=== PATIENT | female | born 1945 | race Hispanic/Latino ===

== ENCOUNTER 2017-04-21 13:56 | Inpatient (IN) | payer MEDICARE ==
[~2017-04-21] VITALS: Ht 154.9 cm; Wt 35.6 kg
[2017-04-21] MEDS ORDERED: SODIUM CHLORIDE FLUSH 10 ML SYR INJ PRN (14:45)
[2017-04-21 20:03] LABS: BASOPHILS % 0.3 % (0.0-1.0); BILIRUBIN,URINE 1+ (NEGATIVE); COLOR,URINE YELLOW (YELLOW); EOSINOPHILS % 0.4 % (0.0-6.0); HEMATOCRIT 44.4 % (34.2-44.1); HEMOGLOBIN 15.3 g/dL (12.0-16.0); KETONES,URINE 2+ (NEGATIVE); LEUKOCYTE ESTERASE ,URINE 1+ (NEGATIVE); LYMPHOCYTES # (AUTO) 0.8 (1.0-3.2); LYMPHOCYTES % 9.8 % (18.0-39.1); MEAN CORPUSCULAR HEMOGLOBIN 30.7 pg (28-32); MEAN CORPUSCULAR HGB CONC 34.5 g/dL (31-35); MEAN CORPUSCULAR VOLUME 89.2 fL (81-99); MONOCYTES # (AUTO) 0.7 (0.2-0.8); MONOCYTES % 8.5 % (4.4-11.3); NEUTROPHILS # (AUTO) 6.4 (2.1-6.9); NEUTROPHILS % 80.6 % (38.7-80.0); NITRITE,URINE NEGATIVE (NEGATIVE); PLATELET COUNT 276 x10e3/uL (140-360); RED BLOOD COUNT 4.98 x10e6/uL (3.6-5.1); RED CELL DISTRIBUTION WIDTH 15.9 % (11.7-14.4); URINE UROBILINOGEN 0.2 mg/dL (0.2 - 1)
[2017-04-21 20:05] LABS: CLARITY,URINE SL CLOUDY (CLEAR); PROTEIN,URINE DIPSTICK 1+ (NEGATIVE)
[2017-04-21 20:14] LABS: BACTERIA,URINE FEW /HPF; EPITHELIAL CELLS,URINE FEW /LPF; MUCUS,URINE FEW (RARE); RBC,URINE 0-5 /HPF (0-5)
[2017-04-21 20:17] LABS: ALANINE AMINOTRANSFERASE 7 IU/L (0-55); ALBUMIN 3.8 g/dL (3.5-5.0); ALBUMIN/GLOBULIN RATIO 0.9 (0.8-2.0); ALKALINE PHOSPHATASE 57 IU/L (40-150); AMYLASE 107 U/L (25-125); ANION GAP 20.5 mmol/L (8-16); BLOOD UREA NITROGEN 28 mg/dL (7-26); BUN/CREATININE RATIO 32 (6-25); CALCIUM 9.7 mg/dL (8.4-10.2); CARBON DIOXIDE 21 mmol/L (22-29); CHLORIDE 94 mmol/L (98-107); CREATINE KINASE 47 IU/L (29-168); CREATININE, SERUM 0.87 mg/dL (0.57-1.11); EST GLOMERULAR FILTRATION RATE > 60 ML/MIN (60-); GLUCOSE 97 mg/dL (74-118); LIPASE 63 U/L (8-78); POTASSIUM 4.5 mmol/L (3.5-5.1); SODIUM 131 mmol/L (136-145)
[2017-04-21 20:23] LABS: TROPONIN I 0.021 ng/mL (0-0.300)
[2017-04-21] MEDS ORDERED: SODIUM CHLORIDE 0.9% 50ML 50 ML ONE (21:36)
[2017-04-21] MEDS ORDERED: IOPAMIDOL 370 MG/ML 200 ML INFUS..BTL INJ ONE (21:36)
--- NOTE | 2017-04-21 21:42 | Diagnostic Imaging Report ---
EXAM: CT ABDOMEN AND PELVIS with IV CONTRAST DATE: 04/21/2017 2:42 PM Time stamp on Exam: 2036 hours INDICATION: Decreased appetite, pancreatitis COMPARISON: None TECHNIQUE: The abdomen and pelvis were scanned using a multidetector helical scanner. Coronal and sagittal reformations were obtained. Routine protocol performed. IV Contrast: 100 cc Isovue-370 Oral Contrast: Water CTDIvol has been reviewed. It is below the limits set by the Radiation Protocol Committee (RPC). FINDINGS: LOWER THORAX: Nonspecific 9 mm nodule left lung base. There is additional thickening and groundglass opacities suggesting chronic changes. LIVER: No masses BILIARY: The gallbladder is unremarkable. No ductal dilation. SPLEEN: No masses PANCREAS: No masses ADRENALS: No nodules KIDNEYS: Symmetric perfusion. No enhancing masses. No hydronephrosis. GI TRACT: High-grade small bowel obstruction. Transition point not identified. Right lower quadrant ostomy. VESSELS: Atherosclerotic changes without aneurysm. PERITONEUM/RETROPERITONEUM: No free air or fluid LYMPH NODES: No lymphadenopathy REPRODUCTIVE ORGANS: There is a 7 cm x 4 cm enhancing mass in the pelvis that could be the uterus. There is a 4 cm right adnexal cyst. BLADDER: Decompressed SOFT TISSUES: Unremarkable BONES: No suspicious bone lesions. IMPRESSION: High-grade small bowel obstruction without transition point identified. Enhancing mass in the pelvis may be an abnormal uterus and there is a nonspecific 4cm right adnexal cyst. Recommend comparison to patient's prior imaging not currently available. Nonspecific 9 mm nodule in the left lung base. Signed by: Dr. Kemi De Anda M.D. on 04/21/2017 9:38 PM
[2017-04-21] MEDS: SODIUM CHLORIDE 0.9% 250ML IRRIG IR SCH (22:15)
[2017-04-21] MEDS ORDERED: ONDANSETRON HCL INJ 2 MG/ML VIAL IV PRN (22:15)
[2017-04-21] MEDS ORDERED: LEVOFLOXACIN 500MG/D5W 100ML 100 ML IV SCH (22:15)
[2017-04-21] MEDS ORDERED: BENZOCAINE/TETRACAINE/BUTAMBEN AERO SPRAY 56 GM CAN TOP ONE (22:30)
[2017-04-21] MEDS: SODIUM CHLORIDE 0.9% 1000ML 1,000 ML IV SCH (22:43)
[2017-04-22] VITALS (10 sets, daily range): BP systolic 91–115; BP diastolic 39–53
[2017-04-22] MEDS ORDERED: MORPHINE SULFATE 2 MG/ML SYR IV PRN (02:00)
[2017-04-22] MEDS: SODIUM CHLORIDE 0.9% 250ML IRRIG IR SCH ×6 (02:45→22:15)
[2017-04-22] MEDS ORDERED: MARINOL5 MG PO (05:06)
[2017-04-22] MEDS ORDERED: METOCLOPRAMIDE10 MG PO (05:06)
[2017-04-22] MEDS ORDERED: BENEFIBER1 EAC1 PO (05:06)
[2017-04-22] MEDS ORDERED: FAMOTIDINE20 MG PO (05:06)
[2017-04-22] MEDS ORDERED: DOCUSATE SODIU100 MG PO (05:06)
[2017-04-22] MEDS ORDERED: ATORVASTATIN CA10 MG PO (05:06)
[2017-04-22] MEDS: SODIUM CHLORIDE 0.9% 1000ML 1,000 ML IV SCH ×2 (09:17→17:53)
[2017-04-22] MEDS ORDERED: LEVOFLOXACIN 500MG/D5W 100ML 100 ML IV SCH (11:30)
--- NOTE | 2017-04-22 12:02 | History and Physical ---
CHIEF COMPLAINTS 1. Abdominal pain. 2. Nausea. 3. Burning urination. HPI: This is a 71-year-old female with no other significant past medical history except CA of colon status post surgery. She was in her usual state of health until a few days ago when she started developing some abdominal pain and nausea and abdominal distention. No fever. Had some burning urination. No chest pain. No shortness of breath. No cough. No leg pain. No leg swelling. ALLERGIES: ALLERGIC TO CODEINE. PAST MEDICAL HISTORY: History of CA of colon. PAST SURGICAL HISTORY: History of right hemicolectomy. SOCIAL HISTORY: Patient lives with her family. HABITS: Smoking cigarettes 1 pack per day. Denies alcohol use. Denies illicit drug use. FAMILY HISTORY: Noncontributory. MEDICATION LIST: None. REVIEW OF SYSTEMS GENERAL: Denies fatigue and weakness. HEENT: No diplopia. No blurring of vision. CARDIOPULMONARY: No chest pain. No shortness of breath. No cough. ALIMENTARY SYSTEM: Has some nausea and vomiting. Abdominal distention. Had some abdominal pain. GENITOURINARY: Has some dysuria. No hematuria. MUSCULOSKELETAL: No joint pain. CENTRAL NERVOUS SYSTEM: No focal weakness. PHYSICAL EXAMINATION GENERAL: This is a 71-year-old female who is alert and oriented times 3. VITAL SIGNS: Temperature 95.9, pulse 97, respiratory rate 18, blood pressure 115/51. HEENT: Within normal limits. Head is atraumatic and normocephalic. Pupils are bilaterally equal and reactive to light. The extraocular movements are intact. NECK: Supple. No JVD. No carotid bruit. NG tube in place. LUNGS: Air entry fair. No added sound. HEART: S1 and S2. Regular rate and rhythm. No S3, S4 or murmur. ABDOMEN: Soft. Mild tenderness generalized. No guarding. No rigidity. EXTREMITIES: No peripheral edema. Peripheral pulses are +1. ORNAMENTER HAND: Grossly nonfocal. LABS: Urine: White count 11-20. Sodium 131, potassium 4.5, BUN and creatinine 28 and 0.87. LFTs normal. White count 7.96, hemoglobin and hematocrit 15.3 and 44.4, platelets 276. ASSESSMENT 1. Small-bowel obstruction. 2. Urinary tract infection. 3. Debility. PLAN 1. N.P.O. 2. NG tube feeding. 3. IV fluids with normal saline at 125 mL per hour. 4. Levaquin 500 IV q.24 h. 5. Labs in the morning. 6. Surgical consultation with Dr. Hanson. 7. Once the patient is stable, we will need a CT of the chest and ultrasound of pelvis. Tests were discussed with the patient. Told of her condition and prognosis. Job#: [id number]
--- NOTE | 2017-04-22 16:34 | Diagnostic Imaging Report ---
EXAM: Abdomen 2 Views INDICATION: \S\small bowel obstruction \[id number] \S\1530 COMPARISON: CT abdomen and pelvis from 04/21/2017 FINDINGS: Mild of stool in the colon. Decreased caliber of the loops of bowel. NG/OG tube overlying the gastric body. No renal calculi. No abnormal soft tissue masses. Mild degenerative changes in the lumbar spine and pelvis. Residual contrast in the urinary bladder. IMPRESSION: Improved bowel obstruction. Signed by: Dr. Sheree Baker M.D. on 04/22/2017 4:30 PM
--- NOTE | 2017-04-22 20:46 | Consultation ---
DATE OF CONSULTATION: April 22, 2017 REQUESTING PHYSICIAN: Dr. Stuart Pitts and Dr. Best Pitts. HISTORY OF PRESENT ILLNESS: Patient is a 71-year-old female who has a history of surgery for colon cancer in November of last year, who presents with complaints of abdominal pain with nausea and poor intake. She has an ileostomy, and there has been no output from the ileostomy. She was evaluated with CT scans of abdomen and pelvis in the emergency room which revealed small-bowel obstruction. Patient is a very poor historian and does not give much history. PAST MEDICAL HISTORY: Significant for Raynaud's syndrome and previous surgery for colon cancer. MEDICATIONS AT HOME: Include Benefiber, Colace, atorvastatin, Pepcid, Reglan, Marinol. ALLERGIES: SHE HAS NO KNOWN ALLERGIES. FAMILY HISTORY: Noncontributory. SOCIAL HISTORY: Patient smokes cigarettes, 1/2 pack per day. Does not drink alcohol. REVIEW OF SYSTEMS: Very limited, except as stated above. The patient is a very poor historian. PHYSICAL EXAMINATION VITALS: Normal. She is not tachycardic. GENERAL: The patient is awake and alert, but does not really answer questions much. HEENT: Reveals no scleral icterus. There is a nasogastric tube in place. NECK: No masses. LUNGS: Equal breath sounds are clear bilaterally. CARDIAC: Regular rate and rhythm. ABDOMEN: Has an ileostomy in the right lower quadrant. It is soft. There is no significant distention. There is no tenderness. EXTREMITIES: No edema. LABORATORY TESTS: The white blood cell count is normal with a slight left shift of differential. Hemoglobin and hematocrit are normal. Chemistries also were essentially normal. CT of abdomen and pelvis reveals findings of small-bowel obstruction. ASSESSMENT: A 71-year-old female with findings suggestive of small-bowel obstruction. There are no signs of peritonitis or ischemic bowel at this time. Recommend continuing the patient n.p.o. on IV fluids with nasogastric tube. Plan to repeat the abdominal x-ray today and repeat labs tomorrow. If her symptoms do not resolve, then she may require surgery. This was explained to the patient. Thank you asking see me to see Ms. Pierce. Job#: [id number]
[2017-04-22] MEDS: LEVOFLOXACIN 500MG/D5W 100ML 100 ML IV SCH (23:57)
[2017-04-23] VITALS (7 sets, daily range): BP systolic 80–98; BP diastolic 42–52
[2017-04-23] MEDS: SODIUM CHLORIDE 0.9% 250ML IRRIG IR SCH ×2 (02:29→06:15)
[2017-04-23] MEDS: SODIUM CHLORIDE 0.9% 1000ML 1,000 ML IV SCH ×4 (02:29→21:02)
[2017-04-23 06:38] LABS: HEMATOCRIT 31.6 % (34.2-44.1); HEMOGLOBIN 10.6 g/dL (12.0-16.0); MEAN CORPUSCULAR HEMOGLOBIN 31.3 pg (28-32); MEAN CORPUSCULAR HGB CONC 33.5 g/dL (31-35); MEAN CORPUSCULAR VOLUME 93.2 fL (81-99); PLATELET COUNT 201 x10e3/uL (140-360); RED BLOOD COUNT 3.39 x10e6/uL (3.6-5.1); RED CELL DISTRIBUTION WIDTH 16.3 % (11.7-14.4)
[2017-04-23 07:16] LABS: ANION GAP 15.1 mmol/L (8-16); BLOOD UREA NITROGEN 14 mg/dL (7-26); BUN/CREATININE RATIO 22 (6-25); CALCIUM 7.9 mg/dL (8.4-10.2); CARBON DIOXIDE 19 mmol/L (22-29); CHLORIDE 101 mmol/L (98-107); CREATININE, SERUM 0.65 mg/dL (0.57-1.11); EST GLOMERULAR FILTRATION RATE > 60 ML/MIN (60-); GLUCOSE 65 mg/dL (74-118); POTASSIUM 3.1 mmol/L (3.5-5.1); SODIUM 132 mmol/L (136-145)
[2017-04-23] MEDS ORDERED: POTASSIUM CHLORIDE 10MEQ/100ML 100 ML IV ONE ×4 (11:30→17:30)
[2017-04-23] MEDS ORDERED: POTASSIUM CHLORIDE 100 ML IV ONE (11:30)
[2017-04-23 11:37] LABS: BASOPHILS % 0.3 % (0.0-1.0); EOSINOPHILS # (AUTO) 0.1 (0.0-0.4); EOSINOPHILS % 0.9 % (0.0-6.0); HEMOGLOBIN 11.3 g/dL (12.0-16.0); LYMPHOCYTES # (AUTO) 0.5 (1.0-3.2); LYMPHOCYTES % 8.1 % (18.0-39.1); MEAN CORPUSCULAR HGB CONC 33.2 g/dL (31-35); MEAN CORPUSCULAR VOLUME 93.2 fL (81-99); MONOCYTES # (AUTO) 0.5 (0.2-0.8); MONOCYTES % 8.1 % (4.4-11.3); NEUTROPHILS # (AUTO) 5.4 (2.1-6.9); NEUTROPHILS % 82.3 % (38.7-80.0); PLATELET COUNT 212 x10e3/uL (140-360); RED BLOOD COUNT 3.65 x10e6/uL (3.6-5.1); RED CELL DISTRIBUTION WIDTH 16.2 % (11.7-14.4)
[2017-04-23] MEDS ORDERED: POTASSIUM CHLORIDE 10MEQ/100ML 100 ML ONE (21:56)
[2017-04-24] MEDS: LEVOFLOXACIN 500MG/D5W 100ML 100 ML IV SCH ×2 (00:07→22:16)
[2017-04-24 00:52] VITALS: BP 89/52
[2017-04-24 04:00] VITALS: BP 124/59
[2017-04-24 07:00] LABS: BASOPHILS % 0.2 % (0.0-1.0); EOSINOPHILS # (AUTO) 0.1 (0.0-0.4); EOSINOPHILS % 1.9 % (0.0-6.0); HEMATOCRIT 32.6 % (34.2-44.1); HEMOGLOBIN 10.7 g/dL (12.0-16.0); LYMPHOCYTES # (AUTO) 0.6 (1.0-3.2); LYMPHOCYTES % 9.7 % (18.0-39.1); MEAN CORPUSCULAR HEMOGLOBIN 30.7 pg (28-32); MEAN CORPUSCULAR HGB CONC 32.8 g/dL (31-35); MEAN CORPUSCULAR VOLUME 93.7 fL (81-99); MONOCYTES # (AUTO) 0.6 (0.2-0.8); MONOCYTES % 9.7 % (4.4-11.3); NEUTROPHILS # (AUTO) 4.5 (2.1-6.9); PLATELET COUNT 210 x10e3/uL (140-360); RED BLOOD COUNT 3.48 x10e6/uL (3.6-5.1); RED CELL DISTRIBUTION WIDTH 16.4 % (11.7-14.4)
[2017-04-24 07:43] LABS: ALANINE AMINOTRANSFERASE 8 IU/L (0-55); ALBUMIN 2.4 g/dL (3.5-5.0); ALBUMIN/GLOBULIN RATIO 0.9 (0.8-2.0); ALKALINE PHOSPHATASE 37 IU/L (40-150); BLOOD UREA NITROGEN 10 mg/dL (7-26); BUN/CREATININE RATIO 16 (6-25); CARBON DIOXIDE 17 mmol/L (22-29); CHLORIDE 104 mmol/L (98-107); CREATININE, SERUM 0.63 mg/dL (0.57-1.11); EST GLOMERULAR FILTRATION RATE > 60 ML/MIN (60-); SODIUM 135 mmol/L (136-145)
[2017-04-24 07:49] LABS: GLUCOSE 54 mg/dL (74-118)
[2017-04-24 08:23] VITALS: BP 82/50
[2017-04-24] MEDS: PANTOPRAZOLE 40 MG 10ML VIAL IV SCH (08:38)
[2017-04-24 13:21] VITALS: BP 80/40
[2017-04-24 16:37] VITALS: BP 75/42
[2017-04-24 20:00] VITALS: BP 93/44
[2017-04-24] MEDS: SODIUM CHLORIDE 0.9% 1000ML 1,000 ML IV SCH (23:30)
[2017-04-25] VITALS: BP 82/41
[2017-04-25 04:00] VITALS: BP 98/47
[2017-04-25 06:57] LABS: BASOPHILS % 0.2 % (0.0-1.0); EOSINOPHILS # (AUTO) 0.1 (0.0-0.4); EOSINOPHILS % 1.5 % (0.0-6.0); HEMOGLOBIN 10.9 g/dL (12.0-16.0); LYMPHOCYTES # (AUTO) 0.7 (1.0-3.2); LYMPHOCYTES % 10.4 % (18.0-39.1); MEAN CORPUSCULAR HEMOGLOBIN 30.5 pg (28-32); MEAN CORPUSCULAR VOLUME 92.4 fL (81-99); MONOCYTES # (AUTO) 0.5 (0.2-0.8); MONOCYTES % 7.3 % (4.4-11.3); NEUTROPHILS # (AUTO) 5.3 (2.1-6.9); NEUTROPHILS % 80.3 % (38.7-80.0); PLATELET COUNT 231 x10e3/uL (140-360); RED BLOOD COUNT 3.57 x10e6/uL (3.6-5.1); RED CELL DISTRIBUTION WIDTH 16.1 % (11.7-14.4)
[2017-04-25 07:25] LABS: ALANINE AMINOTRANSFERASE 7 IU/L (0-55); ALBUMIN 2.5 g/dL (3.5-5.0); ALBUMIN/GLOBULIN RATIO 0.9 (0.8-2.0); ALKALINE PHOSPHATASE 38 IU/L (40-150); ANION GAP 13.9 mmol/L (8-16); BLOOD UREA NITROGEN 7 mg/dL (7-26); BUN/CREATININE RATIO 11 (6-25); CARBON DIOXIDE 24 mmol/L (22-29); CHLORIDE 101 mmol/L (98-107); CREATININE, SERUM 0.64 mg/dL (0.57-1.11); EST GLOMERULAR FILTRATION RATE > 60 ML/MIN (60-); GLUCOSE 82 mg/dL (74-118); SODIUM 136 mmol/L (136-145)
[2017-04-25 07:26] LABS: POTASSIUM 2.9 mmol/L (3.5-5.1)
[2017-04-25] MEDS ORDERED: POTASSIUM CHLORIDE 20 MEQ TAB CR PO ONE (09:00)
[2017-04-25] MEDS: PANTOPRAZOLE 40 MG 10ML VIAL IV SCH (09:00)
[2017-04-25 09:29] VITALS: BP 90/42
[2017-04-25] MEDS ORDERED: POTASSIUM CHLORIDE 20 MEQ TAB CR PO STA (10:04)
[2017-04-25] MEDS ORDERED: POTASSIUM CHLORIDE 20MEQ/100ML 200 ML IV ONE (10:15)
[2017-04-25] MEDS ORDERED: MORPHINE SULFATE 5 MG/ML VIAL IV PRN (11:00)
[2017-04-25 17:52] VITALS: BP 87/42
[2017-04-25 18:00] VITALS: BP 95/45
[2017-04-25 20:00] VITALS: BP 88/39
[2017-04-25] MEDS: SODIUM CHLORIDE 0.9% 1000ML 1,000 ML IV SCH (21:07)
[2017-04-25] MEDS: LEVOFLOXACIN 500MG/D5W 100ML 100 ML IV SCH (23:00)
[2017-04-26] VITALS: BP 87/39
[2017-04-26 04:00] VITALS: BP 83/40
[2017-04-26 06:27] LABS: BASOPHILS % 0.3 % (0.0-1.0); EOSINOPHILS # (AUTO) 0.1 (0.0-0.4); EOSINOPHILS % 1.7 % (0.0-6.0); HEMATOCRIT 33.1 % (34.2-44.1); HEMOGLOBIN 11.1 g/dL (12.0-16.0); LYMPHOCYTES # (AUTO) 0.7 (1.0-3.2); LYMPHOCYTES % 11.7 % (18.0-39.1); MEAN CORPUSCULAR HEMOGLOBIN 30.8 pg (28-32); MEAN CORPUSCULAR HGB CONC 33.5 g/dL (31-35); MEAN CORPUSCULAR VOLUME 91.9 fL (81-99); MONOCYTES # (AUTO) 0.6 (0.2-0.8); MONOCYTES % 10.5 % (4.4-11.3); NEUTROPHILS # (AUTO) 4.5 (2.1-6.9); NEUTROPHILS % 75.5 % (38.7-80.0); PLATELET COUNT 209 x10e3/uL (140-360); RED CELL DISTRIBUTION WIDTH 16.1 % (11.7-14.4)
[2017-04-26 06:54] LABS: ALBUMIN 2.6 g/dL (3.5-5.0); ALKALINE PHOSPHATASE 40 IU/L (40-150); ANION GAP 9.1 mmol/L (8-16); BLOOD UREA NITROGEN < 5 mg/dL (7-26); CALCIUM 8.2 mg/dL (8.4-10.2); CARBON DIOXIDE 27 mmol/L (22-29); CHLORIDE 98 mmol/L (98-107); CREATININE, SERUM 0.67 mg/dL (0.57-1.11); EST GLOMERULAR FILTRATION RATE > 60 ML/MIN (60-); GLUCOSE 115 mg/dL (74-118); POTASSIUM 4.1 mmol/L (3.5-5.1); SODIUM 130 mmol/L (136-145)
[2017-04-26 06:58] LABS: ALANINE AMINOTRANSFERASE < 6 IU/L (0-55); BUN/CREATININE RATIO 7 (6-25)
[2017-04-26 07:54] VITALS: BP 95/41
[2017-04-26] MEDS: PANTOPRAZOLE 40 MG 10ML VIAL IV SCH (09:09)
[2017-04-26 09:40] VITALS: BP 95/41
--- NOTE | 2017-04-26 09:45 | Discharge Summary ---
She is a 71-year-old female patient of mine who is complaining of nausea, vomiting and abdominal pain. ADMITTING IMPRESSION/DIAGNOSES 1. Small-bowel obstruction. 2. Urinary tract infection. 3. Severe debilitation. 4. Pancreatitis. 5. Rectal cancer. 6. Hypokalemia. HOSPITAL COURSE SUMMARY: The patient was admitted with the above diagnoses. The patient was treated with IV fluids and antibiotics. Surgery and GI consult was requested. The patient had an ileostomy. The patient had a partial bowel obstruction, which had resolved. The patient had severe hypokalemia. The patient was treated with IV potassium. Now, upon stabilization the patient will be discharged home. Will be followed up as an outpatient. The patient will have in May reanastomosis of the ileostomy at [place]. SONY TAVERA MD Job#: [id number] [place]
[2017-04-26] MEDS ORDERED: LEVAQUIN500 MG PO (11:19)
[2017-04-26] MEDS ORDERED: PROMETHAZINE HC25 M1 PO (11:19)
[2017-04-26 11:30] VITALS: BP 130/70
== END 2017-04-26 11:47 | disposition home or self-care (01) | DRG 388 ==
LOC: ER 13:56 → ERHOLD 22:31 → MED/SURG 22:49
PROVIDERS: ADMIT Internal Medicine; ATTEND Internal Medicine
DX: K56.609 Unspecified intestinal obstruction, unspecified as to partial versus complete obstruction (principal); K85.90 Acute pancreatitis without necrosis or infection, unspecified; C20 Malignant neoplasm of rectum; E86.0 Dehydration; D63.0 Anemia in neoplastic disease; E87.6 Hypokalemia; N39.0 Urinary tract infection, site not specified; F17.210 Nicotine dependence, cigarettes, uncomplicated; R53.81 Other malaise; Z93.2 Ileostomy status
CPT/HCPCS: 36415; 74020; 74177; 80048; 80053; 81001; 82150; 82550; 82553; 83690; 84484; 85007; 85025; 85027; 87086; 93005; 99285; J1956; J2270; J2405; J3480; J7030; Q9967